=== PATIENT | female | born 1980 | race African-American/Black ===

== ENCOUNTER 2017-05-17 07:32 | Day surgery (SDC) | payer BC ==
[~2017-05-17] VITALS: Ht 167.6 cm; Wt 131.5 kg
[~2017-05-17 07:32] MED LIST: ACCUPRIL5 MG; AMOXICILLIN500 MG PO; AMOXIL200 MG OR; ANUSOL-HC25 MG RE; ASPIRIN EC81 MG PO; BACTRIM DS1 TAB PO; CEPHALEXIN500 M1 PO; CIPRO500 MG OR; CONCEPT DHA PO; DARVOCET-N 100100 MG OR; FEOSOL200 MG PO; FERAHEME510 MG/17 IV; FERR SULFATE325 MG PO; FERROUS SULF325 M3 PO; IRON COMPLEX OR; IRON160 MG OR; IRON325 MG OR; LIPITOR10 M1 PO; LORTAB 7.5 PO; LORTAB 7.57.5 MG PO; LORTAB5 PO; METFORMIN500 M1 PO; MIRALAX3350 N1 OR; NECON1 TA1 PO; NEXIUM10 MG; NEXIUM40 M1 PO; NO HOME MEDS; NO MEDS; NORCO1 TA1 PO; OMEPRAZOLE10 MG PO; PRE-NATAL OR; PREMARIN1.25 MG OR; PRENATA8; PRENATABS; PRENATAL1 TA1; PREVACID30 M2 OR; PRILOSEC20 MG PO; PROMETHAZINE25 MG OR; PROVERA10 MG OR; TRAMADOL HCL50 MG PO; ULTRAM50 M1 PO; ZOFRAN ODT4 MG OR; ZOFRAN4 MG OR; ZPAK OR; [UNRECOGNIZED DRUG - OTHER] PO
[2017-05-17] MEDS ORDERED: LORTAB 7.57.5 MG PO (10:30)
[2017-05-17 11:10] VITALS: BP 127/69
== END 2017-05-17 11:30 | disposition home or self-care (01) | DRG 742 ==
LOC: ORM 07:32
PROVIDERS: ATTEND Obstetrics & Gynecology
PROC: 0U5B8ZZ Destruction of Endometrium, Via Natural or Artificial Opening Endoscopic (ICD-10-PCS; principal; 2017-05-17)
DX: N92.1 Excessive and frequent menstruation with irregular cycle (principal); Z68.42 Body mass index [BMI] 45.0-49.9, adult; D64.9 Anemia, unspecified; R93.8 Abnormal findings on diagnostic imaging of other specified body structures; E11.9 Type 2 diabetes mellitus without complications; Z79.84 Long term (current) use of oral hypoglycemic drugs; E66.9 Obesity, unspecified

== ENCOUNTER 2017-06-09 20:32 | Emergency (ER) | payer BC ==
[~2017-06-09] VITALS: Ht 167.6 cm; Wt 129.4 kg
[2017-06-09 21:19] LABS: URINE BILIRUBIN - DIPSTICK NEGATIVE (NEGATIVE); URINE BLOOD DIPSTICK TRACE-INTACT (NEGATIVE); URINE CLARITY CLEAR; URINE COLOR YELLOW; URINE GLUCOSE - DIPSTICK NEGATIVE (NEGATIVE); URINE KETONE NEGATIVE (NEGATIVE); URINE LEUK ESTERASE NEGATIVE (NEGATIVE); URINE NITRITE - DIPSTICK NEGATIVE (Negative); URINE PH 5.5 (4.5-8.0); URINE PROTEIN - DIPSTICK NEGATIVE (NEG-TRACE); URINE SPECIFIC GRAVITY >=1.030; URINE UROBILINOGEN - DIPSTICK 0.2 E.U./dL (0.2)
[2017-06-09] MEDS ORDERED: FLEXERIL PO (22:12)
[2017-06-09] MEDS ORDERED: ULTRAM50 M1 PO (22:12)
[2017-06-09 22:23] VITALS: BP 110/63
== END 2017-06-09 22:25 | disposition home or self-care (01) | DRG 552 ==
LOC: ED 20:32
PROVIDERS: Emergency Medicine
DX: M54.41 Lumbago with sciatica, right side (principal); M79.604 Pain in right leg

== ENCOUNTER 2017-12-10 18:46 | Emergency (ER) | payer BC ==
[~2017-12-10] VITALS: Ht 167.6 cm; Wt 113.0 kg
[~2017-12-10 18:46] MED LIST changes: +FLEXERIL PO
[2017-12-10 19:48] LABS: URINE BILIRUBIN - DIPSTICK NEGATIVE (NEGATIVE); URINE BLOOD DIPSTICK NEGATIVE (NEGATIVE); URINE COLOR YELLOW; URINE GLUCOSE - DIPSTICK NEGATIVE (NEGATIVE); URINE KETONE NEGATIVE (NEGATIVE); URINE LEUK ESTERASE NEGATIVE (NEGATIVE); URINE NITRITE - DIPSTICK NEGATIVE (Negative); URINE PROTEIN - DIPSTICK NEGATIVE (NEG-TRACE); URINE SPECIFIC GRAVITY 1.015
[2017-12-10 19:50] LABS: HEMOGLOBIN 11.2 g/dl (12.0-16.0); IMMATURE GRANULOCYTES 0.2 % (0.0-1.0); MEAN CELL VOLUME 79.1 fL CALC (80.0-100.0); MEAN CORPUSCULAR HGB 24.6 pG CALC (26.0-32.0); MEAN CORPUSCULAR HGB CONC 31.1 g/L CALC (32.0-36.0); NEUT# 4.42 thou/uL (2.00-7.15); RED BLOOD COUNT 4.55 mill/uL (4.20-5.60); RED CELL DISTRI WIDTH 14.7 % (11.5-15.5)
[2017-12-10 19:50] LABS: URINE CLARITY CLEAR
[2017-12-10 19:51] LABS: BARBITURATES NEGATIVE (NEGATIVE); COCAINE NEGATIVE (NEGATIVE); METHADONE NEGATIVE (NEGATIVE); OXCYCODONE NEGATIVE (NEGATIVE); TETRAHYDROCANNABIONOL NEGATIVE (NEGATIVE); TRICYLIC ANTIDEPRESSANTS NEGATIVE (NEGATIVE)
[2017-12-10 20:26] LABS: ALBUMIN 4.3 g/dL (3.2-5.0); ALKALINE PHOSPHATASE 116 u/l (38-126); ANION GAP 17 (6-22 (CALC)); BILIRUBIN, TOTAL 0.4 mg/dL (0.0-1.4); BUN 11 mg/dL (7-17); BUN/CREATININE RATIO 14 (12-20 (CALC)); CARBON DIOXIDE 24 mmol/l (22-30); CHLORIDE 105 mmol/l (95-108); CREATININE 0.8 mg/dL (0.5-1.0); GFR > 60 ML/MIN (>=60 (CALC)); GFR FOR AFR.AMER. > 60 ML/MIN (>=60 (CALC)); GLUCOSE 123 mg/dL (65-105); POTASSIUM 3.6 mmol/l (3.5-5.1); SGOT/AST 42 u/l (14-36); SGPT/ALT 28 u/l (9-52); SODIUM 142 mmol/l (137-146); TOTAL PROTEIN 7.5 g/dL (6.3-8.2)
[2017-12-10 20:36] LABS: MYOGLOBIN 41 ng/mL (0 - 62)
[2017-12-10] MEDS ORDERED: ANTIVERT PO (21:44)
[2017-12-10 21:57] VITALS: BP 135/85
== END 2017-12-10 21:57 | disposition home or self-care (01) | DRG 948 ==
LOC: ED 18:46
PROVIDERS: Emergency Medicine
DX: R53.1 Weakness (principal); E11.9 Type 2 diabetes mellitus without complications; R42 Dizziness and giddiness; Z79.84 Long term (current) use of oral hypoglycemic drugs; H53.8 Other visual disturbances; Z91.14 Patient's other noncompliance with medication regimen